=== PATIENT | male | born 1960 | race Caucasian/White ===

== ENCOUNTER 2021-07-27 13:18 | Emergency (ER) | payer MEDICAID ==
[~2021-07-27] VITALS: Ht 175.3 cm; Wt 78.0 kg
[2021-07-27 13:24] VITALS: BP 152/80
== END 2021-07-27 13:44 | disposition left against medical advice (07) ==
LOC: ER 13:18
DX: Z53.21 Procedure and treatment not carried out due to patient leaving prior to being seen by health care provider (principal)

== ENCOUNTER 2021-07-31 14:24 | Emergency (ER) | payer MEDICAID ==
[~2021-07-31] VITALS: Ht 177.8 cm; Wt 85.0 kg
[2021-07-31 14:27] VITALS: BP 170/97
[2021-07-31] MEDS ORDERED: TETANUS, DIPHTHERIA, PERTUSSIS VAC/PF 0.5ML (>10YR OLD) IM ONE (16:00)
[2021-07-31 16:08] LABS: BASOPHILS % 0.5 % (0.0-2.0); EOSINOPHILS % 0.3 % (0.0-5.0); HEMATOCRIT. 42.4 % (42.0-52.0); MEAN CORPUSCULAR HEMOGLOBIN 30.2 pg (28.0-32.0); MEAN CORPUSCULAR VOLUME 91.5 fL (80.0-94.0); MEAN PLATELET VOLUME 8.9 fl (7.4-10.4); MONOCYTES % 8.4 % (2.0-8.0); NEUTROPHILS % 67.8 % (40.0-76.0); PLATELET 272 x1000/uL (130-400); RED BLOOD CELL COUNT 4.64 mill/uL (4.7-6.1); RED CELL DISTRIBUTION WIDTH 13.2 % (11.6-14.6)
[2021-07-31 16:15] LABS: CHLORIDE 106 mEq/L (98-107)
[2021-07-31 16:24] LABS: ETHANOL BLOOD < 10 mg/dL
== END 2021-07-31 16:15 | disposition left against medical advice (07) ==
LOC: ER 14:24
DX: R45.1 Restlessness and agitation (principal); Z20.822 Contact with and (suspected) exposure to COVID-19
CPT/HCPCS: 36415; 80053; 80307; 80320; 80329; 84443; 85025; 99283; G0480